=== PATIENT | male | born 1955 | race Caucasian/White ===

== ENCOUNTER 2021-08-02 09:11 | Emergency (ER) | payer OTHER, SELFPAY ==
[2021-08-02 09:18] VITALS: BP 218/116; PULSE 107; TEMP 36.9; O2SAT 97
--- NOTE | 2021-08-02 09:30 | DI.CT_ITS ---
Exam(s) CT CHEST W EXAM: CT CHEST W CLINICAL HISTORY: large abscess, right upper thorax,post. TECHNIQUE: Multi planar reconstructions were performed. CONTRAST MATERIAL: Omnipaque 350; 75 cc COMPARISON: No exams were available for comparison FINDINGS: CHEST: SOFT TISSUES: There is a well-circumscribed fluid collection in the dermal and subcutaneous fat the b ack, slightly right of center, this measuring 2.6 cm AP by 2 cm wide by 2 cm craniocaudal. There is surrounding streaking in the subcutaneous fat. Abscess does not extend into the subjacent musculatur e. LUNGS: Lungs are clear. No infiltrates nor pleural effusions. No nodules. No findings in trachea a nd mainstem bronchi MEDIASTINUM: There is no hilar nor mediastinal adenopathy. Visualized thyroid unremarkable. CARDIAC: Heart size is normal. There is no pericardial effusion.Caliber of the thoracic aorta is wit hin normal limits. VISUALIZED UPPER ABDOMEN:Hepatic steatosis. There is a cyst in the inferior aspect of right hepatic lobe noted. This measures 2 by 1.6 cm. No adrenal masses. No splenomegaly. Partially included cys t in the medial cortex of the right kidney also noted which measures 2.8 by 2.6 cm. OSSEOUS: No significant osseous lesions.No osteomyelitis.. IMPRESSION: 1. 2.6 x 2.0 x 2.0 cm abscess in the skin and subcutaneous tissues over the back, without invasion in to the deep muscular layer but with significant surrounding inflammatory streaking in the subcutaneou s fat. 2. No focal pulmonary findings. No intrathoracic adenopathy. 3. Incidental findings in the upper abdomen as described above RADIATION DOSE DELIVERED: 599.71mGy.cm Total DLP DATA REPOSITORY: All CT scans at this facility are submitted to the National Radiology Data Registry (NRDR) Dose Index Registry (DIR) with the [employer] ([employer]). RADIATION OPTIMIZATION: All CT scans at this facility use at least one of these dose optimization te chniques: automated exposure control; mA and/or kV adjustment per patient size (includes targeted exa ms where dose is matched to clinical indication); or iterative reconstruction.
[2021-08-02] MEDS: ACETAMINOPHEN 1,000 MG/100 ML BTL 400 MG IVPB (10:00)
[2021-08-02 10:03] LABS: Abs Immature Grans 0.03 10^3/uL (0.0-0.06); Absolute Basophil Count 0.03 10^3/uL (0.0-0.2); Absolute Eosinophil Count 0.09 10^3/uL (0.0-0.7); Absolute Lymphocyte Count 1.62 10^3/uL (1.2-3.4); Absolute Monocyte Count 0.75 10^3/uL (0.1-0.8); Absolute Neutrophil Count 8.71 10^3/uL (1.2-6.7); Basophils % 0.3; Eosinophils % 0.8; HCT 45.2 % (40.0-50.0); HGB 15.5 g/dL (13.5-17.5); Immature Grans % 0.3; Lactate 1.6 mmol/L (0.6-1.4); Lymphocytes % 14.4; MCH 28.4 pg (27.0-33.0); MCHC 34.3 % (32.0-36.0); MCV 82.8 fL (80-95); MPV 9.8 fL (8.0-11.0); Monocytes % 6.7; Neutrophils % 77.5; Nucleated RBC 0 %; Platelet Count 351 10^3/uL (130-400); RBC 5.46 10^6/uL (4.36-5.78); RDW 11.9 % (11.8-14.1); RDW-SD 35.8 fL; WBC 11.24 10^3/uL (4.4-10.8)
[2021-08-02 10:19] LABS: ALT 21 U/L (16-63); AST 15 U/L (15-37); Albumin 3.9 g/dL (3.4-5.0); Alkaline Phosphatase 129 U/L (46-116); Anion Gap 8.8 mmol/L (3-11); BUN 18 mg/dL (7-18); Bilirubin, Total 0.5 mg/dL (0.2-1.0); C-Reactive Protein 3.13 mg/dL (0.0-0.3); CO2 28.2 mmol/L (21.0-32.0); CREATININE 1.1 mg/dL (0.70-1.30); Calcium 9.6 mg/dL (8.5-10.1); Chloride 92 mmol/L (98-107); Glucose 319 mg/dL (74-106); Potassium 4.2 mmol/L (3.5-5.1); Sodium 129 mmol/L (136-145); Total Protein 9.1 g/dL (6.4-8.2)
[2021-08-02 10:21] VITALS: BP 192/114
[2021-08-02 10:29] LABS: Hemoglobin A1C 8.5 % (<5.7)
[2021-08-02] MEDS: Omnipaque 350 MG/ML 100 ML BTL 70 ML IJ (10:48)
[2021-08-02] MEDS: Normal Saline 1,000 ML 1000 ML IV (10:54)
--- NOTE | 2021-08-02 12:03 | ED.GENADUL_ITS ---
Discharge Plan Disposition Patient Disposition: HOME Condition: Stable Discharge Details Clinical Impression: Sebaceous cyst Primary Care Provider: Unknown,Unknown ED Provider: Abida Guerra Home Meds and New Rx's Prescriptions: New clindamycin HCl 300 mg capsule 300 mg PO QID Qty: 28 RF: 0 Continued omeprazole 20 mg Capsule,Delayed Release(Dr/Ec) 20 mg PO DAILY RF: 0 Discharge Instructions Additional Instructions: Warm compresses Recheck in 48 hours Follow-up with the surgeon as you will likely need to have the capsule of the cyst removed Warm compresses, 5 to 10 minutes every 2-3 hours as tolerated You have awake in place, that she pulled in 48 to 72 hours, you recheck, if this comes out earlier you do not need to return immediately to the emergency room, I would still like you to be reassessed Your blood sugar is very high, and it is essential that you reinitiate your Metformin start your Metformin evening at your regular dose Your blood pressure is also quite high I recommend you restart your blood pres sure medication as well, he will need to revisit your primary care physician, you can also follow-up the [facility], I am listing surgeon for follow-up, you will need PCP follow-up, your blood sugar and blood pressure are very high and you can lead to failure of your kidneys and stroke You may take Tylenol as needed for discomfort, 650 mg every 4-6 hours as tolerated Referrals: Ingrid Salguero MD [ [facility] STAFF PHYSICIAN] - Discharge Data Discharge Date/Time-TO BE ENTERED AT DEPARTURE: 08/02/21 12:17 Medical Decision Making Patient blood sugar 300, no evidence of DKA Long discussion with patient about need to start his antihypertensive again, he has this medication at home He also has a Metformin, he ensures me that he will reinitiate these meds and follow-up with his PCP who is located at the [facility] He will call them tomorrow Care management was also involved so that patient may have close outpatient reassessment Recheck in 24 to 48 hours recommended Started on clindamycin Patient tolerated procedure without incident Lactate was very mildly elevated, this is not consistent with patient does not appear to be septic septic clinically on my assessment His sodium will need to be rechecked by his PCP, this is likely pseudohyponatremia from elevated glucose There is no notation for admission at this time, however the patient needs very close outpatient reassessment, he is aware that his blood pressure is quite elevated this with him at increased risk for stroke He is also aware that his blood sugar significantly elevated and have him at increased risk for coronary artery disease, vision abnormalities, and renal failure He is discharged home alert, oriented, of decisional capacity in stable condition He will need close outpatient reassessment Medical Records Medical records reviewed: Yes I reviewed the patient's medical records. Lab Data Lab results reviewed: Yes I reviewed the patient's lab results. HPI General Mode of arrival: ambulatory . Date/Time Provider Initiated Documentation: 08/02/21 09:12 . Limitations to Documentation: no limitations . Information obtained by: patient . HPI Narrative: This 66-year-old gentleman who has a noncompliant hypertensive and diabetic. ,Presents with abscess to right thorax region. Patient states this started approximately 1-1/2 months ago. For the past week and painful and red. He also feels as though the lesion has grown in size. He denies any fever or chills. He denies any chest pain or shortness of breath. He has not taken his Metformin or antihypertensives for the past a year because they made him feel terrible . He has not checked her blood sugar at home. He denies any headache numbness or tingling. Pain is exacerbated with palpation and pressure to the affected region. Denies pain with movement of his shoulder. Denies history of IV drug abuse. Related Data Home Medications Medication Instructions Recorded Confirmed clindamycin HCl 300 mg PO QID #28 cap 08/02/21 omeprazole 20 mg PO DAILY 08/02/21 08/02/21 Previous Rx's Medication Instructions Recorded clindamycin HCl 300 mg PO QID #28 cap 08/02/21 Allergies Allergy/AdvReac Type Severity Reaction Status Date / Time Penicillins Allergy Intermediate Other (See Unverified 08/02/21 09:21 Comment) General Stated Complaint: RashLesion LUIZA: 4 Review of Systems All systems reviewed & are unremarkable except as noted in HPI and below PFSH All Active Problems (Updated 08/02/21 @ 12:11 by POLI De La Garza) Sebaceous cyst (Acute) Social History Smoking/Tobacco Use Status: Never Smoking risk assessment performed?: Yes Alcohol Intake: never Substance use type: does not use Do you feel safe at home: Yes Do you feel safe in your relationship?: Yes Exam Const General: cooperative, comfortable and no acute distress Eyes Sclera: sclerae normal Chest Chest: normal inspection of the chest Resp Effort & Inspection: normal respiratory effort Auscultation: clear to auscultation bilaterally Cardio Rate: regular rate Rhythm: regular rhythm GI Inspection: normal to inspection Rectal Exam: visual inspection normal Back/Spine/Pelvis Back/spine/pelvis image: 1. Palpable fluctuance, erythema, approximately 6 inch x 3 inch region, no lymphangitis, no crepitus Skin Other: See note above, large abscess noted to right thorax Neuro General: patient alert and patient oriented x3 Extrem Other: Right shoulder with range of motion intact, neurovascularly intact distally Distal pulses intact Course Vital Signs Vital signs: Vital Signs Temperature 36.9 C 08/02/21 09:18 Pulse 107 H 08/02/21 09:18 Blood Pressure 218/116 H 08/02/21 09:18 Pulse Oximetry 97 08/02/21 09:18 Temperature 36.9 C 08/02/21 09:18 Temperature Source Temporal Artery Scan 08/02/21 09:18 Pulse 107 H 08/02/21 09:18 Respiratory Effort Non-Labored 08/02/21 09:24 Blood Pressure 192/114 H 08/02/21 10:21 Blood Pressure Position Sitting 08/02/21 09:18 Pulse Oximetry 97 08/02/21 09:18 Oxygen Delivery Method Room Air 08/02/21 09:18 Oxygen Flow Rate 0 08/02/21 09:18 Lab/Test Results Lab/Test Results: 08/02/21 09:54 Blood Blood Culture - Pending 08/02/21 09:47 Blood Blood Culture - Pending Laboratory Tests Range/Units 08/02/21 08/02/21 08/02/21 09:47 09:47 09:47 WBC (4.4-10.8) 10^3/uL RBC (4.36-5.78) 10^6/uL Hgb (13.5-17.5) g/dL Hct (40.0-50.0) % MCV (80-95) fL MCH (27.0-33.0) pg MCHC (32.0-36.0) % RDW (11.8-14.1) % Plt Count (130-400) 10^3/uL MPV (8.0-11.0) fL Immature Gran % Neutrophils % Lymphocytes % Monocytes % Eosinophils % Basophils % Nucleated RBC % % Absolute Neutrophils (1.2-6.7) 10^3/uL Absolute Lymphocytes (1.2-3.4) 10^3/uL Absolute Monocytes (0.1-0.8) 10^3/uL Absolute Eosinophils (0.0-0.7) 10^3/uL Absolute Basophils (0.0-0.2) 10^3/uL VBG Lactate (0.6-1.4) mmol/L 1.6 H Sodium (136-145) mmol/L 129 L Potassium (3.5-5.1) mmol/L 4.2 Chloride (98-107) mmol/L 92 L Carbon Dioxide (21.0-32.0) mmol/L 28.2 Anion Gap (3-11) mmol/L 8.8 BUN (7-18) mg/dL 18 Creatinine (0.70-1.30) mg/dL 1.1 Estimated GFR/1.73 m2 (mL/min/1.73m2) >= 60.00 Glucose (74-106) mg/dL 319 H Hemoglobin A1c (<5.7) % 8.5 H Calcium (8.5-10.1) mg/dL 9.6 Total Bilirubin (0.2-1.0) mg/dL 0.5 AST (15-37) U/L 15 ALT (16-63) U/L 21 Alkaline Phosphatase (46-116) U/L 129 H C-Reactive Protein (0.0-0.3) mg/dL 3.13 H Total Protein (6.4-8.2) g/dL 9.1 H Albumin (3.4-5.0) g/dL 3.9 Range/Units 08/02/21 09:47 WBC (4.4-10.8) 10^3/uL 11.24 H RBC (4.36-5.78) 10^6/uL 5.46 Hgb (13.5-17.5) g/dL 15.5 Hct (40.0-50.0) % 45.2 MCV (80-95) fL 82.8 MCH (27.0-33.0) pg 28.4 MCHC (32.0-36.0) % 34.3 RDW (11.8-14.1) % 11.9 Plt Count (130-400) 10^3/uL 351 MPV (8.0-11.0) fL 9.8 Immature Gran % 0.3 Neutrophils % 77.5 Lymphocytes % 14.4 Monocytes % 6.7 Eosinophils % 0.8 Basophils % 0.3 Nucleated RBC % % 0 Absolute Neutrophils (1.2-6.7) 10^3/uL 8.71 H Absolute Lymphocytes (1.2-3.4) 10^3/uL 1.62 Absolute Monocytes (0.1-0.8) 10^3/uL 0.75 Absolute Eosinophils (0.0-0.7) 10^3/uL 0.09 Absolute Basophils (0.0-0.2) 10^3/uL 0.03 VBG Lactate (0.6-1.4) mmol/L Sodium (136-145) mmol/L Potassium (3.5-5.1) mmol/L Chloride (98-107) mmol/L Carbon Dioxide (21.0-32.0) mmol/L Anion Gap (3-11) mmol/L BUN (7-18) mg/dL Creatinine (0.70-1.30) mg/dL Estimated GFR/1.73 m2 (mL/min/1.73m2) Glucose (74-106) mg/dL Hemoglobin A1c (<5.7) % Calcium (8.5-10.1) mg/dL Total Bilirubin (0.2-1.0) mg/dL AST (15-37) U/L ALT (16-63) U/L Alkaline Phosphatase (46-116) U/L C-Reactive Protein (0.0-0.3) mg/dL Total Protein (6.4-8.2) g/dL Albumin (3.4-5.0) g/dL Procedures Abscess I/D Site: Back Side (if applicable): Right Sedation/analgesia: None Local Anesthetic: Lidocaine 1% and With Epi Amount of anesthesia used (mL): 10 Technique: Needle Aspiration and Incised with #11 Blade Amount of fluid expressed (mL): 20 Irrigation: Yes Packing used?: Iodoform
[2021-08-02] MEDS: Clindamycin 300 MG CAP PO (12:21)
[2021-08-02 12:22] VITALS: BP 198/111; PULSE 102; RESP 19; TEMP 37; O2SAT 97
== END 2021-08-02 12:17 | disposition home or self-care (01) ==
PROVIDERS: Emergency Provider Physician Assistant
DX: L72.3 Sebaceous cyst (principal); E11.65 Type 2 diabetes mellitus with hyperglycemia; I10 Essential (primary) hypertension; Z91.14 Patient's other noncompliance with medication regimen
CPT/HCPCS: 10061; 36415; 80053; 87040; 96361; 96374; 99285; 71260; 83036; 83605; 85025; 86140; 99283; J0131; J3490

== ENCOUNTER 2021-08-04 12:18 | Emergency (ER) | payer OTHER, SELFPAY ==
[2021-08-04 12:22] VITALS: BP 192/109; PULSE 103; RESP 18; TEMP 36.4; O2SAT 99
--- NOTE | 2021-08-04 12:40 | W.ED.GENAD ---
Discharge Plan Disposition Patient Disposition: HOME Condition: Stable Discharge Details Clinical Impression: Encounter for wound re-check Primary Care Provider: Unknown,Unknown ED Provider: Karlie Lund Home Meds and New Rx's Prescriptions: New sulfamethoxazole-trimethoprim [Bactrim DS] 800-160 mg tablet 1 tab PO BID 10 Days Qty: 20 RF: 0 Continued omeprazole 20 mg Capsule,Delayed Release(Dr/Ec) 20 mg PO DAILY RF: 0 metformin 500 mg Tablet 2,000 mg PO HS RF: 0 hydrochlorothiazide 50 mg Tablet 12 - 50 mg PO DAILY RF: 0 Discontinued clindamycin HCl 300 mg capsule 300 mg PO QID Qty: 28 RF: 0 Discharge Instructions Instructions: Abscess (ED) Additional Instructions: Clean daily under running soap and water. No soaking. Keep dry. Please follow-up with general surgery for further evaluation and treatment. Please begin taking your blood pressure medication and diabetes medication as previously encouraged to do so. A new prescription for Bactrim which is an antibiotic given to you today. Please return to the ER for any fever, chills, worsening vomiting or any concerns for worsening infection. Referrals: Ingrid Salguero MD [ [facility] STAFF PHYSICIAN] - 5 days Discharge Data Discharge Date/Time-TO BE ENTERED AT DEPARTURE: 08/04/21 13:12 Medical Decision Making 66-year-old male who was recently seen here on August 02 for a abscess I&D presents for a recheck. He has ABD dressing covering a large abscess to his right upper back with approximately 3 inches of packing in place upon initial examination. Packing was easily removed. He does have some purulent drainage noted. The incision does appear to be open. He reports that he was prescribed clindamycin which upset his stomach and caused vomiting. He is allergic to penicillin. I will prescribe Bactrim to cover for possible MRSA. He has not made a follow-up appointment with general surgery. Of note he is also hypertensive upon arrival he has not started taking his blood pressure medication which he reports he has at home but he is unsure of the name. I did reiterate that he does need to follow-up with general surgery for further evaluation and treatment he verbalizes understanding. He denies any fever chills or any concerns other than the above-mentioned. HPI General Mode of arrival: ambulatory. Date/Time Provider Initiated Documentation: 08/04/21 12:19. Limitations to Documentation: no limitations. Information obtained by: patient, RN notes reviewed and old records reviewed. HPI Narrative: 66-year-old male who was recently seen here on August 02 for a abscess I&D presents for a recheck. He has ABD dressing covering a large abscess to his right upper back with approximately 3 inches of packing in place upon initial examination. Packing was easily removed. He does have some purulent drainage noted. The incision does appear to be open. He reports that he was prescribed clindamycin which upset his stomach and caused vomiting. He is allergic to penicillin. I will prescribe Bactrim to cover for possible MRSA. He has not made a follow-up appointment with general surgery. Of note he is also hypertensive upon arrival he has not started taking his blood pressure medication which he reports he has at home but he is unsure of the name. I did reiterate that he does need to follow-up with general surgery for further evaluation and treatment he verbalizes understanding. He denies any fever chills or any concerns other than the above-mentioned. Related Data Home Medications Medication Instructions Recorded Confirmed omeprazole 20 mg PO DAILY 08/02/21 08/04/21 hydrochlorothiazide 12 - 50 mg PO DAILY 08/04/21 08/04/21 metformin 2,000 mg PO HS 08/04/21 08/04/21 sulfamethoxazole-trimethoprim 1 tab PO BID 10 Days #20 tab 08/04/21 [Bactrim DS] Previous Rx's Medication Instructions Recorded sulfamethoxazole-trimethoprim 1 tab PO BID 10 Days #20 tab 08/04/21 [Bactrim DS] Allergies Allergy/AdvReac Type Severity Reaction Status Date / Time Penicillins Allergy Intermediate Other (See Unverified 08/04/21 12:27 Comment) clindamycin AdvReac Intermediate N/V Unverified 08/04/21 12:27 General Stated Complaint: Recheck LUIZA: 4 Review of Systems All systems reviewed & are unremarkable except as noted in HPI and below Integumentary/Breasts Skin/Breast: Reports as per HPI and Reports sores PFSH All Active Problems (Updated 08/04/21 @ 12:47 by Karlie Lund) Sebaceous cyst (Acute) Encounter for wound re-check (Acute) Social History Smoking/Tobacco Use Status: Never Smoking risk assessment performed?: Yes Alcohol Intake: never Drug use: Never Substance use type: does not use Do you feel safe at home: Yes Do you feel safe in your relationship?: Yes Exam Back/Spine/Pelvis Back: mass and erythema Back/spine/pelvis image: 1. Approximate 10 cm area of erythema and induration, central incision noted, purulent drainage noted from packing strip. Course Vital Signs Vital signs: Vital Signs Temperature 36.4 C L 08/04/21 12:22 Pulse 103 H 08/04/21 12:22 Respiratory Rate 18 08/04/21 12:22 Blood Pressure 192/109 H 08/04/21 12:22 Pulse Oximetry 99 08/04/21 12:22 Temperature 36.4 C L 08/04/21 12:22 Temperature Source Skin 08/04/21 12:22 Pulse 103 H 08/04/21 12:22 Respiratory Rate 18 08/04/21 12:22 Respiratory Effort 08/04/21 12:30 Blood Pressure 192/109 H 08/04/21 12:22 Pulse Oximetry 99 08/04/21 12:22 Oxygen Delivery Method Room Air 08/04/21 12:22 Oxygen Flow Rate 0 08/04/21 12:22 Pain Level 0 08/04/21 12:22 Comment 08/04/21 12:22
--- NOTE | 2021-08-04 12:49 | NUR.NOTE ---
Nursing Note: PT INFO FAXED TO [facility] TO BE SEEN WITHIN A WEEK FOR A CYST. SHABNAM JORDAN
[2021-08-04] MEDS: Sulfameth/Trimeth DS TAB 1 TAB PO (13:05)
[2021-08-04] MEDS: Sulfameth/Trimeth DS, 2 TABS/BTL 1 TAB PO (13:05)
== END 2021-08-04 13:12 | disposition home or self-care (01) ==
PROVIDERS: Emergency Provider Registered Nurse Emergency
DX: L72.3 Sebaceous cyst (principal)

== ENCOUNTER 2022-07-20 14:05 | Outpatient (REF) | payer SELFPAY | END 2022-07-20 14:06 | disposition home or self-care (01) | LOC: LBN 14:05 | PROVIDERS: Visit Provider Nurse Practitioner Family | DX: E11.621 Type 2 diabetes mellitus with foot ulcer (principal); L08.9 Local infection of the skin and subcutaneous tissue, unspecified | CPT/HCPCS: 87077; 87070; 87186; 87205 ==

== ENCOUNTER 2023-12-11 08:26 | Day surgery (SDC) | payer OTHER, SELFPAY ==
[2023-12-11 09:06] VITALS: BP 191/103; PULSE 105; RESP 18; TEMP 36.4; O2SAT 99
[2023-12-11] MEDS: Lactated Ringers 1,000 ML 80 ML IV (09:20)
--- NOTE | 2023-12-11 09:51 | COLE_ITS ---
Date of service: 12/11/23 Time of Service: 09:51 Colonoscopy Report Procedure Description: PROCEDURES PERFORMED: 1. Colonoscopy with hot snare polypectomy x3 2. Cold forceps biopsy 3. Submucosal injection/tattoo PREOPERATIVE DIAGNOSIS: Surveillance colonoscopy, colon polyps POSTOPERATIVE DIAGNOSIS: Colorectal polyps, sigmoid diverticulosis, unresectable polyp, grade 1 internal hemorrhoids SURGEON: Bryan Kaur MD INDICATION for procedure: The patient is a 68-year-old man with no symptoms. His last colonoscopy was 5 or 6 years ago and adenomas were removed. He has no family history of colon cancer. FINDINGS: The terminal ileum was normal. The right colon is free of any medium or large polyps. The prep was not perfect on that side and small polyps could have been missed. In either the distal transverse colon or proximal descending colon, somewhere ne ar the splenic flexure, there is a large, flat, very flat, sessile polyp at least 2 cm in longest dimension. It is quite firm. I was unable to get this snare around it or even parts of it to attempt to resect it. It encompasses about one third of the colon wall. I performed submucosal tattoo directly at the level of the polyp (not distal or proximal) and I took multiple cold forceps biopsies from the center of it. Again, it is notably firm and tough making me believe it is polyp tissue. It is at about 60-70 cm on the colonoscope. Hot snare was used to resect another 3-5 mm sessile polyp right next to this polyp. There is significant sigmoid diverticulosis present. No fibrosis or active inflammation visible. No stricture. In the distal sigmoid colon is a 5-7 mm sessile polyp and this was removed with hot snare technique. Mild grade 1 internal hemorrhoids noted. SURVEILLANCE interval/FOLLOW-UP: Pending biopsy results. I am quite confident this is a polyp. Patient will be given the option of tertiary referral for advanced endoscopy efforts or an elective segmental resection. SPECIMENS: yes EBL: Minimal COMPLICATIONS: None QUALITY of prep: Adequate, but somewhat poor in a couple areas on the right side. Small polyps could have been missed. Procedure in detail: The patient gave written consent and was in agreement with the indications, the potential risks as well as the benefits of the procedure. They were taken to the endoscopy suite and laid in the left lateral decubitus position. A timeout was performed and anesthesia was administered which was tolerated well. I started the procedure. Digital rectal and visual examination was performed and grossly within normal limits. A well-lubricated flexible colonoscope was then introduced and passed without any notable difficulty all the way to the cecum identified by the ileocecal valve and the appendiceal orifice. The terminal ileum was briefly intubated and looked normal. The scope was then slowly withdrawn with the above-noted findings. The patient tolerated the procedure well and was taken to the PACU in hemodynamically stable condition.
--- NOTE | 2023-12-11 09:54 | W.PM.DSUDISC ---
Date of service: 12/11/23 Time of Service: 09:54 Discharge Plan Disposition Patient Disposition: Home Condition: Good Discharge Details Attending Provider: Rakesh Kaur Primary Care Provider: Eduardo Wells Home Meds and New Rx's Prescriptions: No Action acetaminophen [Tylenol Extra Strength] 500 mg tablet 1,000 mg PO Q6H PRN bisacodyl [Dulcolax (bisacodyl)] 5 mg tablet,delayed release (DR/EC) 5 mg PO ONCE Qty: 4 0RF Rx Instructions: Take per colonoscopy instructions provided by ordering providers office polyethylene glycol 3350 17 gram/dose powder 17 g PO ONCE Qty: 238 0RF Rx Instructions: Take per colonoscopy instructions provided by ordering providers office ibuprofen 400 mg tablet 400 mg PO TID polyethylene glycol 3350 17 gram/dose powder 17 g PO DAILY metformin 500 mg tablet 750 mg PO BID amlodipine 10 mg tablet 10 mg PO DAILY hydrocodone-acetaminophen 5-325 mg tablet 1 tab PO BID PRN insulin glargine 100 unit/mL (3 mL) insulin pen 12 unit subcut DAILY Patient Comments: 9 units magnesium oxide 400 mg magnesium capsule 400 mg PO DAILY omeprazole 20 mg Capsule,Delayed Release(Dr/Ec) 20 mg PO DAILY aspirin 81 mg capsule 81 mg PO DAILY rosuvastatin [Crestor] 5 mg tablet 5 mg PO DAILY metoprolol tartrate 25 mg tablet 25 mg PO BID Discharge Instructions Additional Instructions: FINDINGS: Some polyps were found and removed today. There was 1 large polyp found today that was not able to be removed. We need to discuss some management strategies and ideas for this polyp. Call my office to schedule follow-up appointment in the next 2 to 3 weeks after pathology results come back to discuss what best to do about it. This is not cancer and you do not need to worry about it, but it is something we need to figure out how to best take care of. Activity:: Activity as Tolerated Diet:: As Tolerated
--- NOTE | 2023-12-11 10:13 | ANES.PREOP_ITS ---
General Info Date of Service Date Performed: 12/11/23 Height: 6 ft Weight: 106.4 kg Body Mass Index (BMI): 31.8 Surgical Procedure: Operation Date: 12/11/23 10:35 Proposed Procedure Side Surgeon julee Kaur MD Meds Allergies and Home Medications Allergies Allergy/AdvReac Type Severity Reaction Status Date / Time Penicillins Allergy Intermediate Other (See Verified 12/11/23 08:57 Comment) lisinopril Allergy Unknown none noted Verified 12/11/23 08:57 on referral losartan Allergy Unknown none noted Verified 12/11/23 08:57 on referral clindamycin AdvReac Intermediate N/V Verified 12/11/23 08:57 Home Medication Medication Instructions Recorded omeprazole 20 mg capsule,delayed 20 mg PO DAILY 08/02/21 release ibuprofen 400 mg tablet 400 mg PO TID 09/01/21 polyethylene glycol 3350 17 17 g PO DAILY 09/01/21 gram/dose oral powder acetaminophen 500 mg tablet 1,000 mg PO Q6H PRN 09/06/21 (Tylenol Extra Strength) amlodipine 10 mg tablet 10 mg PO DAILY 11/01/23 hydrocodone 5 mg-acetaminophen 325 1 tab PO BID PRN 11/01/23 mg tablet insulin glargine 100 unit/mL (3 12 unit subcut DAILY 11/01/23 mL) subcutaneous pen magnesium oxide 400 mg PO DAILY 11/01/23 metformin 500 mg tablet 750 mg PO BID 11/01/23 bisacodyl 5 mg tablet,delayed 5 mg PO ONCE #4 tabs 11/30/23 release (Dulcolax (bisacodyl)) polyethylene glycol 3350 17 17 g PO ONCE #238 grams 11/30/23 gram/dose oral powder aspirin 81 mg capsule 81 mg PO DAILY 12/11/23 metoprolol tartrate 25 mg tablet 25 mg PO BID 12/11/23 rosuvastatin 5 mg tablet (Crestor) 5 mg PO DAILY 12/11/23 Current Visit Medications: Current Medications Generic Name Dose Route Start Last Admin Trade Name Freq PRN Reason Stop Dose Admin Ringer's Solution 1,000 mls @ 80 mls/hr 12/11/23 06:00 12/11/23 09:20 IV 12/11/23 23:59 80 mls/hr INFUSION CARSON Administration IV Miscellaneous Supplies 1 each 12/11/23 06:00 Iv Access IV 12/11/23 23:59 DIRECTED CARSON Sodium Chloride 0 ml 12/11/23 06:00 Normal Saline Flush 10 Ml Syr IV 12/11/23 23:59 PRN PRN Sodium Chloride 0 ml 12/11/23 06:00 Normal Saline 10 Ml Vial IJ 12/11/23 23:59 DIRECTED PRN Sterile Water 0 ml 12/11/23 06:00 Water,Injection,Sterile 10 Ml Vial IJ 12/11/23 23:59 DIRECTED PRN PFSH Active Problems Active Problems: Problem Status Onset Code Infected sebaceous cyst of skin L72.3, L08.9 Type II diabetes mellitus E11.9 Low back pain M54.50 Essential hypertension I10 Medical History Medical History Male erectile dysfunction, unspecified Major depressive disorder with single episode Hepatic cyst Other chest pain Pt. states Aint nothing every came of nothing Abdominal pain Lumbosacral strain Surgical History Surgical History Status post left foot surgery for infection with wound vac History of colonoscopy with polypectomy (~06/22/17) flat serrated polyp x1, inflammatory polyp x2 repeat 5 yrs done at [facility] Tobacco Smoking/Tobacco Use Status: Never Alcohol Alcohol Intake: former Substance Use Substance use: Occasionally Substance use type: marijuana Details: marijuana: smoking, t-1: joint Vital Signs and Lab Results Vital Signs Most Recent Vital Signs in EMR: Most Recent Vital Signs Temp Pulse Resp BP Pulse Ox 36.4 C L 105 H 18 191/103 H 99 12/11/23 09:06 12/11/23 09:06 12/11/23 09:06 12/11/23 09:06 12/11/23 09:06 Point of Care Results Point of Care Results: Finger Stick Blood Glucose 121 12/11/23 08:39 Lab Results Blood Type / Crossmatch: No Data to Display Complete Blood Count: No Data to Display Complete Metabolic Panel: No Data to Display Liver Function Panel: No Data to Display Coagulation Panel: No Data to Display Cardiac Panel: No Data to Display Arterial Blood Gas: No Data to Display Venous Blood Gas: No Data to Display Pancreas Panel: No Data to Display Thyroid Panel: No Data to Display Infectious Disease: No Data to Display Blood Cultures: No Data to Display Toxicology Panel: No Data to Display Anesthesia Assessment and Plan Anesthesia History Personal History: No History of Anesthesia Complications Family History: No Family History of Anesthesia Complications Exercise Tolerance Exercise Tolerance: Metabolic Equivalents>4 Pertinent Negatives Pertinent Negatives: No Symptoms of GERD, No Major Cardiovascular Symptoms or Complaints and No Major Pulmonary Symptoms or Complaints Cardiac & Pulmonary Exam Cardiac Exam: Normal S1/S2 Heart Sounds Pulmonary Exam: Clear Bilateral Breath Sounds Implantable Cardiac Device Does patient have a Pacemaker or an ICD?: No Airway Exam Known Difficult Airway: No Mallampati Class: 1 Mouth Opening: Normal (> 3cm) Thyromental Distance: Greater than 3 cm Facial Hair: Full [place] Neck Range of Motion: Full ROM Neck Circumference: Normal Teeth Condition: Edentulous ASA Classification ASA Score: ASA 2 Emergency Case?: No NPO Status NPO Status: NPO Clears >2 hours, Solids >8 hours Anesthesia Plan Resuscitation Status: Full Code Anesthesia Technique: General Anesthesia Airway Planned: Natural Airway Monitors Used: Standard Monitors
[2023-12-11 10:17] VITALS: BMI 31.8
--- NOTE | 2023-12-11 10:35 | BOWEL_PTH ---
PATIENT: Pako Rudolph LOC: [facility] U#:[id number] AGE/SX: 68/M ROOM: RE12/11/[address]: Rakesh Kaur : 1955 BED: DIS: 12/11/2023 SPEC #: [id number] RECD: 12/11/23 13:04 STATUS: SINDHU RE #: [id number] IFEANYI: 12/11/23 10:[address]: Rakesh Kaur DEPT: Surgical Specimen RECD BY: Abida Newton ENTERED: 12/11/23 13:06 SP TYPE: Bowel OTHR DR: Eduardo Wells Tissues: 1 - BIOPSY BOWEL 2 - BIOPSY BOWEL 3 - BIOPSY BOWEL Procedures: GROSS AND MICRO LEVEL 4 Comments: [id number]
[2023-12-11] MEDS: Endoscopic Tattoo 5 ML SYR IJ (10:50)
[2023-12-11 11:02] VITALS: BP 136/83; PULSE 83; RESP 16; TEMP 36.6; O2SAT 97
--- NOTE | 2023-12-11 11:08 | W.ANESPOSTOP ---
Postoperative Evaluation Date, Time and Location Date Performed: 12/11/23 Time Performed: 11:08 Patient Location: Day Surgery Unit Vital Signs Most Recent Imported Vital Signs: Most Recent Vital Signs Temp Pulse Resp BP Pulse Ox 36.6 C 83 16 136/83 97 12/11/23 11:02 12/11/23 11:02 12/11/23 11:02 12/11/23 11:02 12/11/23 11:02 Pain Score Most Recent Pain Score: Most Recent Pain Score Pain Level 0 12/11/23 11:02 Assessment Mental Status: Awake (Alert & Oriented to Patient Baseline) Airway and Respiratory Function: Patent airway with normal (patient baseline) respiratory exam Cardiovascular Function: Hemodynamically Stable Hydration Status: Adequately Hydrated Nausea & Vomiting: No Nausea or Vomiting Pain: Pt. Denies Any Pain Peripheral Nerve Block: Patient did not receive a nerve block
[2023-12-11 11:28] VITALS: BP 164/91; PULSE 90; RESP 16; TEMP 36.6; O2SAT 97
== END 2023-12-11 08:27 | disposition home or self-care (01) ==
PROVIDERS: PCP Physician Assistant Medical; Visit Provider Student in an Organized Health Care Education/Training Program
PROC: 0DJD8ZZ Inspection of Lower Intestinal Tract, Via Natural or Artificial Opening Endoscopic (ICD-10-PCS; CPT 45378; principal; 2023-12-11 10:30)
DX: Z12.11 Encounter for screening for malignant neoplasm of colon (principal); I10 Essential (primary) hypertension; K64.0 First degree hemorrhoids; K57.30 Diverticulosis of large intestine without perforation or abscess without bleeding; D12.4 Benign neoplasm of descending colon; K62.1 Rectal polyp; D12.5 Benign neoplasm of sigmoid colon
CPT/HCPCS: 45385; 45380; 45381; 00123; 88305; J2704